=== PATIENT | female | born 1970 | race Hispanic/Latino ===

== ENCOUNTER 2020-06-16 09:13 | Observation (INO) | payer OTHER ==
[~2020-06-16] VITALS: Ht 157.5 cm; Wt 81.6 kg
[2020-06-16 09:42] LABS: APPEARANCE,URINE Clear (CLEAR); BILIRUBIN,URINE Negative (NEGATIVE); COLOR,URINE Yellow (YELLOW); GLUCOSE, URINE (UA) Negative (NEGATIVE); KETONES,URINE Negative (NEGATIVE); LEUKOCYTE ESTERASE ,URINE Negative (NEGATIVE); NITRATE,URINE Negative (NEGATIVE); OCCULT BLOOD,URINE Negative (NEGATIVE); PROTEIN,URINE Negative (NEGATIVE); UROBILINOGEN,URINE 0.2 mg/dL (0.2-1.0)
[2020-06-16 09:44] LABS: BASOPHILS % (AUTO) 0.3 % (0.0-5.0); EOSINOPHILS % (AUTO) 0.5 % (0.0-8.0); HEMATOCRIT 42.3 % (36-48); LYMPHOCYTES % (AUTO) 16.1 % (21.0-51.0); MEAN CORPUSCULAR HEMOGLOBIN 29.2 pg (27.0-33.0); MEAN CORPUSCULAR HGB CONC 31.9 g/dL (32.0-36.0); MEAN CORPUSCULAR VOLUME 91.6 fL (79-99); NEUTROPHILS % (AUTO) 76.6 % (40.0-77.0); PLATELET COUNT (AUTO) 309 K/uL (130-400); RED BLOOD CELL COUNT(AUTO) 4.62 MIL/uL (4.00-5.50); RED CELL DISTRIBUTION WIDTH 13.1 % (11.0-15.5); WHITE BLOOD COUNT (AUTO) 9.5 K/uL (4.8-10.8)
[2020-06-16 09:52] LABS: CREATININE 1.8 mg/dL (0.5-1.5); POTASSIUM 4.3 mmol/L (3.5-5.1)
[2020-06-16 09:57] LABS: ALBUMIN 4.3 g/dL (3.5-5.0); BILIRUBIN,TOTAL 0.4 mg/dL (0.2-1.0); TOTAL PROTEIN, SERUM 8.5 g/dL (6.0-8.3)
[2020-06-16 10:17] LABS: INR 0.99 (0.85-1.15); PARTIAL THROMBOPLASTIN TIME 24.7 SEC (26.3-35.5); PROTHROMBIN TIME 10.7 SEC (9.6-11.6)
[2020-06-16] MEDS ORDERED: DIAZEPAM 5 MG TABLET ONE (11:32)
[2020-06-16] MEDS ORDERED: ACETAMINOPHEN 325 MG TAB PO PRN ×2 (12:30)
[2020-06-16] MEDS ORDERED: ONDANSETRON HCL 4 MG/2 ML VIAL IV PRN (12:30)
[2020-06-16 13:15] LABS: HEMOGLOBIN A1C 6.2 % (4.0-6.0)
[2020-06-16 13:21] LABS: PHOSPHORUS 4.1 mg/dL (2.5-4.9); THYROID STIMULATING HORMONE 1.01 uIU/mL (0.36-3.74)
[2020-06-16] MEDS ORDERED: LORAZEPAM 2 MG/ML 1 ML VIAL ONE (15:40)
[2020-06-16 16:20] VITALS: BP 136/76
[2020-06-16 19:15] VITALS: BP 131/69
[2020-06-16] MEDS: SODIUM CHLORIDE 0.9% 1000ML 1,000 ML IV SCH (20:30)
[2020-06-16 23:53] VITALS: BP 113/72
[2020-06-17] MEDS: SODIUM CHLORIDE 0.9% 1000ML 1,000 ML IV SCH ×2 (00:02→06:48)
[2020-06-17 03:34] VITALS: BP 127/73
[2020-06-17 08:00] VITALS: BP 123/81
[2020-06-17] MEDS ORDERED: FAMOTIDINE 20MG TAB 20 MG TAB PO SCH (09:00)
[2020-06-17] MEDS ORDERED: ENOXAPARIN SODIUM 40 MG/0.4 ML SYRINGE SQ SCH (09:00)
[2020-06-17] MEDS ORDERED: MECL-160 PO (09:47)
[2020-06-17 11:00] VITALS: BP 129/69
--- NOTE | 2020-06-17 13:30 | NUR ---
THE PATIENT WAS INFORMED OF FOLLOW UP WITH PCP IN 3 TO 5 DAYS.
--- NOTE | 2020-06-17 13:30 | NUR ---
THE PATIENT WAS DISCHARGED FROM [facility] AT 1330 ON DECEME2019. THE PATIENT WAS EDUCATED ON NEW PRESCRIPTIONS, ELEVATED BLOOD PRESSURE, AND FALL PREVENTION. THE PATIENNT WAS INFORMED THAT ALL MEDICATIONS WERE SENT TO HER LOCAL PHARMACY AND SHE NEEDED TO SHOW UP THERE TO GET THEM. SHE WAS ALSO EDUCATED ON THE IMPORTANCE OF TAKING HIGH BLOOD PRESSURE MEDICATION TO HELP PRESERVE HEART FUNCTION IN THE FUTE, THE PATIENT STATED THAT SHE HASNT TAKING BLOOD PRESSURE MEDICATION IN YEARS. THE PATIENT UNDERSTOOD ALL TEACHING REGARDING INFORMATION THAT WAS READ TO HER AND HAD NO FURHTER QUESTIONS. THE PATIENTS IV WAS DISCONTINUED AND INTACT.
== END 2020-06-17 14:45 | disposition home or self-care (01) ==
LOC: EDH 09:13 → EDHIP 09:14 → 3BH 16:20
PROVIDERS: ADMIT Internal Medicine; ATTEND Internal Medicine
DX: R42 Dizziness and giddiness (principal); R11.2 Nausea with vomiting, unspecified; I10 Essential (primary) hypertension; R00.1 Bradycardia, unspecified; E66.01 Morbid (severe) obesity due to excess calories; F17.200 Nicotine dependence, unspecified, uncomplicated; Z90.710 Acquired absence of both cervix and uterus; Z91.14 Patient's other noncompliance with medication regimen; Z79.899 Other long term (current) drug therapy; Z68.32 Body mass index [BMI] 32.0-32.9, adult
CPT/HCPCS: 36415; 70450; 70551; 80053; 81003; 83036; 83735; 84100; 84145; 84443; 85025; 85610; 85730; 93005; 93880; 96360; 96361; 96372; 99285; G0378 ×26; J1650; J2060; J7030

== ENCOUNTER 2022-05-10 23:02 | Inpatient (IN) | payer OTHER ==
[~2022-05-10] VITALS: Ht 157.5 cm; Wt 84.4 kg
[~2022-05-10 23:02] MED LIST: MECL-160 PO
[2022-05-10 23:12] LABS: BASOPHILS % (AUTO) 0.5 % (0.0-5.0); HEMATOCRIT 39.7 % (36-48); LYMPHOCYTES % (AUTO) 23.3 % (21.0-51.0); MEAN CORPUSCULAR HEMOGLOBIN 29.5 pg (27.0-33.0); MEAN CORPUSCULAR HGB CONC 32.5 g/dL (32.0-36.0); MEAN CORPUSCULAR VOLUME 90.6 fL (79-99); MONOCYTES % (AUTO) 8.4 % (3.0-13.0); NEUTROPHILS % (AUTO) 64.5 % (40.0-77.0); PLATELET COUNT (AUTO) 343 K/uL (130-400); RED BLOOD CELL COUNT(AUTO) 4.38 MIL/uL (4.00-5.50); RED CELL DISTRIBUTION WIDTH 13.2 % (11.0-15.5); WHITE BLOOD COUNT (AUTO) 9.3 K/uL (4.8-10.8)
[2022-05-10 23:26] LABS: CREATININE 0.7 mg/dL (0.5-1.5); POTASSIUM 3.7 mmol/L (3.5-5.1)
[2022-05-10 23:32] LABS: APPEARANCE,URINE CLEAR (CLEAR); BILIRUBIN,URINE NEGATIVE (NEGATIVE); COLOR,URINE LIGHT-YELLOW (YELLOW); GLUCOSE, URINE (UA) NEGATIVE (NEGATIVE); KETONES,URINE NEGATIVE (NEGATIVE); LEUKOCYTE ESTERASE ,URINE 25 Leu/uL (NEGATIVE); NITRATE,URINE NEGATIVE (NEGATIVE); OCCULT BLOOD,URINE NEGATIVE (NEGATIVE); PROTEIN,URINE NEGATIVE (NEGATIVE); UROBILINOGEN,URINE 0.2 mg/dL (0.2-1.0)
[2022-05-10 23:34] LABS: ALBUMIN 3.7 g/dL (3.5-5.0); TOTAL PROTEIN, SERUM 7.7 g/dL (6.0-8.3)
[2022-05-10 23:39] LABS: BACTERIA,URINE RARE /HPF (None Seen); MUCUS,URINE RARE LPF (None Seen); SQUAMOUS EPITHELIAL CELL,UR RARE /HPF (0-2)
[2022-05-11] MEDS ORDERED: ONDANSETRON 4MG INJ IVP ONE
[2022-05-11] MEDS ORDERED: MAG/ALUM/SIMETH 30 ML UDCUP PO ONE (01:30)
[2022-05-11] MEDS ORDERED: LIDOCAINE HCL 2% VISCOUS 15 ML UDCUP PO ONE (01:30)
[2022-05-11] MEDS ORDERED: CYCLOBENZAPRINE HCL 10 MG TABLET ONE (04:27)
[2022-05-11] MEDS ORDERED: HYDROCODONE/ACETAMINOPHEN 10/325 MG TAB ONE (04:28)
[2022-05-11] MEDS ORDERED: ACETAMINOPHEN 325 MG TAB PO PRN (04:30)
[2022-05-11] MEDS ORDERED: ONDANSETRON 4MG INJ IV PRN (04:30)
[2022-05-11] MEDS ORDERED: HYDROCODONE/ACETAMINOPHEN 10/325 MG TAB PO ONE (04:30)
[2022-05-11] MEDS ORDERED: NITROGLYCERIN 0.4 MG SL TAB SL PRN (04:30)
[2022-05-11] MEDS ORDERED: MORPHINE 2 MG SYG IV PRN (04:30)
[2022-05-11] MEDS ORDERED: CYCLOBENZAPRINE HCL 10 MG TABLET PO ONE (04:30)
[2022-05-11] MEDS ORDERED: MORPHINE 4 MG SYG IV PRN (04:30)
[2022-05-11] MEDS ORDERED: DICYCLOMINE HCL 20 MG TAB PO SCH (04:30)
[2022-05-11] MEDS ORDERED: DICYCLOMINE HCL 20 MG TAB ONE (04:33)
[2022-05-11] MEDS: NITROGLYCERIN 1GM OINT 1 INCH/1GM TD SCH ×3 (04:43→20:30)
[2022-05-11] MEDS: CEFTRIAXONE 1G VIAL IV SCH (04:43)
[2022-05-11] MEDS ORDERED: CAPT25TA3 PO (04:58)
[2022-05-11] MEDS ORDERED: ATOR10TA69 PO (04:58)
[2022-05-11] MEDS ORDERED: ASPIRIN 81MG CHEW TAB PO ONE (05:00)
[2022-05-11 05:35] VITALS: BP 126/59
[2022-05-11 08:03] VITALS: BP 118/69
[2022-05-11] MEDS: FAMOTIDINE 20MG TAB PO SCH ×2 (08:20→21:01)
[2022-05-11] MEDS: ENOXAPARIN SODIUM 40 MG/0.4 ML SYRINGE SQ SCH (08:20)
[2022-05-11] MEDS: ASPIRIN 81MG CHEW TAB PO SCH (08:20)
[2022-05-11 11:15] VITALS: BP 107/65
[2022-05-11 16:07] VITALS: BP 110/68
[2022-05-11 21:43] VITALS: BP 124/61
[2022-05-12 00:15] VITALS: BP 121/68
[2022-05-12] MEDS: CEFTRIAXONE 1G VIAL IV SCH (04:06)
[2022-05-12 04:16] VITALS: BP 132/72
[2022-05-12 04:38] LABS: BASOPHILS % (AUTO) 0.5 % (0.0-5.0); EOSINOPHILS % (AUTO) 2.3 % (0.0-8.0); HEMATOCRIT 36.7 % (36-48); LYMPHOCYTES % (AUTO) 31.1 % (21.0-51.0); MEAN CORPUSCULAR HEMOGLOBIN 28.6 pg (27.0-33.0); MEAN CORPUSCULAR HGB CONC 31.1 g/dL (32.0-36.0); MEAN CORPUSCULAR VOLUME 92.2 fL (79-99); MONOCYTES % (AUTO) 8.4 % (3.0-13.0); NEUTROPHILS % (AUTO) 57.4 % (40.0-77.0); PLATELET COUNT (AUTO) 307 K/uL (130-400); RED BLOOD CELL COUNT(AUTO) 3.98 MIL/uL (4.00-5.50); RED CELL DISTRIBUTION WIDTH 13.3 % (11.0-15.5); WHITE BLOOD COUNT (AUTO) 6.2 K/uL (4.8-10.8)
[2022-05-12 05:20] LABS: CREATININE 0.7 mg/dL (0.5-1.5); MAGNESIUM 2.2 mg/dL (1.80-2.40); PHOSPHORUS 3.7 mg/dL (2.5-4.9); POTASSIUM 4.3 mmol/L (3.5-5.1); THYROID STIMULATING HORMONE 1.18 uIU/mL (0.36-3.74)
[2022-05-12 08:10] VITALS: BP 136/64
[2022-05-12] MEDS: ENOXAPARIN SODIUM 40 MG/0.4 ML SYRINGE SQ SCH (08:19)
[2022-05-12] MEDS: ASPIRIN 81MG CHEW TAB PO SCH (08:19)
[2022-05-12] MEDS ORDERED: PANTOPRAZOLE 40 MG TAB DR PO SCH (09:00)
[2022-05-12 10:58] VITALS: BP 120/66
[2022-05-12] MEDS ORDERED: PANT40TA PO (15:50)
[2022-05-12] MEDS ORDERED: ATOR10TA69 PO (15:50)
[2022-05-12 16:21] VITALS: BP 115/54
== END 2022-05-12 16:35 | disposition home or self-care (01) | DRG 313 ==
LOC: EDH 23:02 → EDHIP 23:03 → 4BH 05-11 05:05
PROVIDERS: ADMIT Internal Medicine; ATTEND Internal Medicine
DX: R07.89 Other chest pain (principal); N39.0 Urinary tract infection, site not specified; Z20.822 Contact with and (suspected) exposure to COVID-19; E11.9 Type 2 diabetes mellitus without complications; I10 Essential (primary) hypertension; E78.00 Pure hypercholesterolemia, unspecified; F17.200 Nicotine dependence, unspecified, uncomplicated; Z82.49 Family history of ischemic heart disease and other diseases of the circulatory system; Z83.3 Family history of diabetes mellitus; Z90.710 Acquired absence of both cervix and uterus; Z91.14 Patient's other noncompliance with medication regimen
CPT/HCPCS: 36415; 71045; 80048; 80053; 80061; 81001; 83036; 83735; 83874; 83880; 84100; 84443; 84484; 85025; 85378; 87635; 87804; 93005; G0378; J0696; J1650; J2405

== ENCOUNTER 2022-08-05 05:48 | Emergency (ER) | payer OTHER ==
[~2022-08-05] VITALS: Ht 154.9 cm; Wt 84.8 kg
[~2022-08-05 05:48] MED LIST changes: +ATOR10TA69 PO; -MECL-160 PO; +PANT40TA PO
[2022-08-05 06:15] LABS: BASOPHILS % (AUTO) 0.3 % (0.0-5.0); EOSINOPHILS % (AUTO) 4.7 % (0.0-8.0); LYMPHOCYTES % (AUTO) 31.6 % (21.0-51.0); MEAN CORPUSCULAR HEMOGLOBIN 28.3 pg (27.0-33.0); MEAN CORPUSCULAR HGB CONC 31.8 g/dL (32.0-36.0); MEAN CORPUSCULAR VOLUME 89.3 fL (79-99); MONOCYTES % (AUTO) 7.3 % (3.0-13.0); NEUTROPHILS % (AUTO) 55.7 % (40.0-77.0); PLATELET COUNT (AUTO) 311 K/uL (130-400); RED BLOOD CELL COUNT(AUTO) 4.48 MIL/uL (4.00-5.50); RED CELL DISTRIBUTION WIDTH 13.3 % (11.0-15.5); WHITE BLOOD COUNT (AUTO) 7.6 K/uL (4.8-10.8)
[2022-08-05 06:30] LABS: ALBUMIN 3.8 g/dL (3.5-5.0); CREATININE 0.8 mg/dL (0.5-1.5); POTASSIUM 3.8 mmol/L (3.5-5.1); TOTAL PROTEIN, SERUM 7.6 g/dL (6.0-8.3)
[2022-08-05 06:47] LABS: INR 1.01 (0.85-1.15)
[2022-08-05 06:49] LABS: PARTIAL THROMBOPLASTIN TIME 29.2 SEC (26.3-35.5)
[2022-08-05] MEDS ORDERED: MAG/ALUM/SIMETH 30 ML UDCUP PO ONE (08:30)
[2022-08-05] MEDS ORDERED: LIDOCAINE HCL 2% VISCOUS 15 ML UDCUP PO ONE (08:30)
[2022-08-05] MEDS ORDERED: DICYCLOMINE HCL 10 MG/5 ML ML PO ONE (08:30)
[2022-08-05 09:27] LABS: APPEARANCE,URINE CLEAR (CLEAR); BILIRUBIN,URINE NEGATIVE (NEGATIVE); COLOR,URINE LIGHT-YELLOW (YELLOW); GLUCOSE, URINE (UA) NEGATIVE (NEGATIVE); KETONES,URINE NEGATIVE (NEGATIVE); LEUKOCYTE ESTERASE ,URINE NEGATIVE Leu/uL (NEGATIVE); NITRATE,URINE NEGATIVE (NEGATIVE); OCCULT BLOOD,URINE NEGATIVE (NEGATIVE); PROTEIN,URINE NEGATIVE (NEGATIVE); UROBILINOGEN,URINE 0.2 mg/dL (0.2-1.0)
[2022-08-05 10:35] VITALS: BP 135/74
== END 2022-08-05 10:36 | disposition home or self-care (01) ==
LOC: EDH 05:48
DX: K20.90 Esophagitis, unspecified without bleeding (principal); I10 Essential (primary) hypertension; E78.00 Pure hypercholesterolemia, unspecified; Z79.899 Other long term (current) drug therapy
CPT/HCPCS: 36415; 71045; 80053; 81003; 83690; 83880; 84484; 85025; 85610; 85730; 93005

== ENCOUNTER 2023-10-02 18:27 | Emergency (ER) | payer BC ==
[~2023-10-02] VITALS: Ht 154.9 cm; Wt 87.5 kg
[2023-10-02 20:11] LABS: APPEARANCE,URINE CLEAR (CLEAR); BILIRUBIN,URINE NEGATIVE (NEGATIVE); COLOR,URINE COLORLESS (YELLOW); GLUCOSE, URINE (UA) NEGATIVE (NEGATIVE); KETONES,URINE NEGATIVE (NEGATIVE); LEUKOCYTE ESTERASE ,URINE 75 Leu/uL (NEGATIVE); NITRATE,URINE NEGATIVE (NEGATIVE); OCCULT BLOOD,URINE NEGATIVE (NEGATIVE); PROTEIN,URINE NEGATIVE (NEGATIVE); UROBILINOGEN,URINE 0.2 mg/dL (0.2-1.0)
[2023-10-02 20:18] LABS: ADD UA MICROSCOPIC YES
[2023-10-02 20:19] LABS: BACTERIA,URINE RARE /HPF (None Seen); MUCUS,URINE RARE LPF (None Seen); SQUAMOUS EPITHELIAL CELL,UR RARE /HPF (0-2)
[2023-10-02 20:21] LABS: BASOPHILS # (AUTO) 0.03 K/uL (0.00-0.20); BASOPHILS % (AUTO) 0.3 % (0.0-5.0); EOSINOPHILS # (AUTO) 0.03 K/uL (0.00-0.70); EOSINOPHILS % (AUTO) 0.3 % (0.0-8.0); HEMATOCRIT 37.9 % (36-48); IMMATURE GRANULOCYTE ABSOLUTE 0.04 K/uL (0-1); LYMPHOCYTES # (AUTO) 1.9 K/uL (1.0-4.8); LYMPHOCYTES % (AUTO) 17.7 % (21.0-51.0); MEAN CORPUSCULAR HEMOGLOBIN 29.3 pg (27.0-33.0); MEAN CORPUSCULAR HGB CONC 33.8 g/dL (32.0-36.0); MEAN CORPUSCULAR VOLUME 86.7 fL (79-99); MONOCYTES # (AUTO) 0.6 K/uL (0.1-1.0); MONOCYTES % (AUTO) 5.5 % (3.0-13.0); NEUTROPHILS # (AUTO) 7.9 K/uL (1.8-7.7); NEUTROPHILS % (AUTO) 75.8 % (40.0-77.0); PLATELET COUNT (AUTO) 345 K/uL (130-400); RED BLOOD CELL COUNT(AUTO) 4.37 MIL/uL (4.00-5.50); RED CELL DISTRIBUTION WIDTH 13.1 % (11.0-15.5); WHITE BLOOD COUNT (AUTO) 10.5 K/uL (4.8-10.8)
[2023-10-02] MEDS: 0.9%NACL 1000ML 1,000 ML IV ONE (20:21)
[2023-10-02] MEDS: ONDANSETRON 4MG INJ IVP ONE (20:21)
[2023-10-02] MEDS: MORPHINE 4 MG SYG IVP ONE (20:21)
[2023-10-02 20:31] LABS: CREATININE 0.6 mg/dL (0.5-1.0); POTASSIUM 3.9 mmol/L (3.5-5.1)
[2023-10-02 20:37] LABS: BILIRUBIN,TOTAL 0.3 mg/dL (0.2-1.0); TOTAL PROTEIN, SERUM 7.9 g/dL (6.0-8.3)
[2023-10-02] MEDS: CEFTRIAXONE 1G VIAL IVPB ONE (22:02)
[2023-10-02] MEDS ORDERED: LOPE2TAB26 PO (22:12)
[2023-10-02] MEDS ORDERED: PANT40TA PO (22:12)
[2023-10-02 22:27] VITALS: BP 147/77; PULSE 80; RESP 18; O2SAT 99
== END 2023-10-02 22:28 | disposition home or self-care (01) ==
LOC: EDH 18:27
DX: R19.7 Diarrhea, unspecified (principal); K57.30 Diverticulosis of large intestine without perforation or abscess without bleeding; E27.8 Other specified disorders of adrenal gland; K21.9 Gastro-esophageal reflux disease without esophagitis; Z79.899 Other long term (current) drug therapy; Z90.710 Acquired absence of both cervix and uterus
CPT/HCPCS: 99284; 74176; 96374; 96375; 82270; 83735; 80053; 83690; 85025; 87040 ×2; 87088; 83605; 81001; 36415; J7030; J0696; J2405; J2270

== ENCOUNTER 2024-05-27 19:01 | Observation (INO) | payer BC ==
[~2024-05-27] VITALS: Ht 157.5 cm; Wt 86.6 kg
[~2024-05-27 19:01] MED LIST changes: +LOPE2TAB26 PO
[2024-05-27 20:02] LABS: BASOPHILS # (AUTO) 0.03 K/uL (0.00-0.20); BASOPHILS % (AUTO) 0.4 % (0.0-5.0); EOSINOPHILS # (AUTO) 0.09 K/uL (0.00-0.70); EOSINOPHILS % (AUTO) 1.3 % (0.0-8.0); HEMATOCRIT 38.3 % (36-48); IMMATURE GRANULOCYTE ABSOLUTE 0.02 K/uL (0-1); MEAN CORPUSCULAR HEMOGLOBIN 29.5 pg (27.0-33.0); MEAN CORPUSCULAR HGB CONC 32.1 g/dL (32.0-36.0); MEAN CORPUSCULAR VOLUME 91.8 fL (79-99); MONOCYTES # (AUTO) 0.5 K/uL (0.1-1.0); MONOCYTES % (AUTO) 7.2 % (3.0-13.0); NEUTROPHILS # (AUTO) 4.4 K/uL (1.8-7.7); NEUTROPHILS % (AUTO) 61.8 % (40.0-77.0); PLATELET COUNT (AUTO) 301 K/uL (130-400); RED BLOOD CELL COUNT(AUTO) 4.17 MIL/uL (4.00-5.50); RED CELL DISTRIBUTION WIDTH 12.9 % (11.0-15.5)
[2024-05-27 20:11] LABS: CREATININE 0.7 mg/dL (0.5-1.0); POTASSIUM 3.8 mmol/L (3.5-5.1)
[2024-05-27 20:29] LABS: B-TYPE NATRIURETIC PEPTIDE 5 pg/mL (0-100)
--- NOTE | 2024-05-27 20:30 | NUR ---
PT BROUGHT INTO [facility] D AT THIS TIME.
--- NOTE | 2024-05-27 20:39 | ERN ---
ED Note History of Present Illness Stated Complaint: CHEST PAIN SINCE SATURDAY Chief Complaint: Chest Pain Time Seen by MD: 19:13 Dictation: This is a 54-year-old obese female who presented to the emergency room with complaints of severe chest pain. 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 She was scared and called her daughter. She also took Pepcid with no improvement at all. She gave history of 1 episode of emesis. For breakfast she ate scrambled egg and does ortiz. And lunch she ate a hamburger patties at 2 p.m. her pain started around 3:00 p.m.. She has not had this kind of severe pain in the past. Temperature 97.5 pulse 69 respirations 20 blood pressure 154/87 with a pulse oximetry of 98% on room air Her chronic medical problems include esophagitis, H pylori infection, hyper tension high cholesterol and morbid obesity Allergies: Coded Allergies: No Known Allergies (Verified Allergy, Unknown, 06/16/20) Home Meds Active Scripts Pantoprazole Sodium (Protonix) 40 Mg Tablet.dr, 40 MG PO DAILY for 30 Days, #30 TAB Prov:KATIA BENJAMIN 10/02/23 Loperamide HCl (Loperamide) 2 Mg Tablet, 2 MG PO DAILY for 7 Days, #30 TAB Take 2 now then 1 after every loose stool. Once you have a solid stool discontinue use. Prov:KATIA BENJAMIN 10/02/23 Pantoprazole Sodium (Protonix) 40 Mg Tablet.dr, 40 MG PO BID for GERD for 90 Days, #180 TAB 1 Refill Prov:YONY HOSKINS Jr., MD 05/12/22 Atorvastatin Calcium (Atorvastatin Calcium) 10 Mg Tablet, 10 MG PO DAILY for 90 Days, #90 TAB Prov:YONY HOSKINS Jr., MD 05/12/22 Past Medical History Past Medical History: High Cholesterol, Hypertension Surgical History: Hysterectomy Family History: DM, HTN Social History: Negative, Lives with family History: Not Applicable RN Note Reviewed/Agreed w/PFSH: Yes Review of System Dictation Constitutional: Negative for fever,chills, and weight loss Eyes: Negative for injury, pain,redness, and discharge ENT: Negative for injury,pain or swelling Cardiovascular: Positive for chest pain, denied palpitations, and edema Respiratory: Negative for shortness of breath, cough, and wheezing, Abdomen/GI: Negative for abdominal pain, nausea, vomiting, diarrhea, and constipation Back: Negative for injury and pain : Negative for injury, bleeding and discharge MS/Extremity: Negative for injury and deformity Skin: Negative for rash, and discoloration Neuro: Negative for headache, weakness, numbness, tingling, and seizure Psych: Negative for suicide ideation, homicidal ideation, and hallucinations Initial Vital Sign VS Vital Signs Date Time Temp Pulse Resp B/P (MAP) Pulse Ox O2 Delivery O2 Flow Rate FiO2 05/27/24 19:01 97.5 69 20 154/87 98 Room Air 0 05/27/24 21:23 21 Physical Exam Dictation General: awake, alert, NAD morbidly obese female Head/Face: Normocephalic, atraumatic Eyes: PERRL, EOMI, vision at baseline ENT: oral cavity clear, TMs clear, no signs of infection Neck: Trachea midline, supple, no nuchal rigidity Cardiovascular: RRR, normal S1/S2, No MRGs, no JVD, chest wall is nontender Respiratory: CTAB, no respiratory distress, No rales or wheezes Abdomen: Soft, non-tender, non-distended, normal bowel sounds, no guarding or rebound. Skin: Warm, dry, normal turgor, no rash MS/Extremity: Pulses equal, no cyanosis, neurovascular intact, FROM Neuro: COAx4, GCS 15, strength 5/5, CN 2-12 intact, normal cerebellar exam, normal gait, Psych: Normal behavior, mood, and affect normal Extremities-trace edema without any palpable cords, Homans sign is negative Results (Laboratory/Radiology) Laboratory/Radiology Laboratory Tests Test 05/27/24 19:55 05/27/24 20:15 05/27/24 21:33 White Blood Count 7.0 K/uL (4.8-10.8) Red Blood Count 4.17 MIL/uL (4.00-5.50) Hemoglobin 12.3 g/dL (12.0-16.0) Hematocrit 38.3 % (36-48) Mean Corpuscular Volume 91.8 fL (79-99) Mean Corpuscular Hemoglobin 29.5 pg (27.0-33.0) Mean Corpuscular Hemoglobin Concent 32.1 g/dL (32.0-36.0) Red Cell Distribution Width 12.9 % (11.0-15.5) Platelet Count 301 K/uL (130-400) Mean Platelet Volume 11.0 fL (7.5-10.5) H Immature Granulocyte % (Auto) 0.3 % (0-1) Neutrophils (%) (Auto) 61.8 % (40.0-77.0) Lymphocytes (%) (Auto) 29.0 % (21.0-51.0) Monocytes (%) (Auto) 7.2 % (3.0-13.0) Eosinophils (%) (Auto) 1.3 % (0.0-8.0) Basophils (%) (Auto) 0.4 % (0.0-5.0) Neutrophils # (Auto) 4.4 K/uL (1.8-7.7) Lymphocytes # (Auto) 2.0 K/uL (1.0-4.8) Monocytes # (Auto) 0.5 K/uL (0.1-1.0) Eosinophils # (Auto) 0.09 K/uL (0.00-0.70) Basophils # (Auto) 0.03 K/uL (0.00-0.20) Absolute Immature Granulocyte (auto 0.02 K/uL (0-1) Nucleated Red Blood Cells 0.0 % (0.0-0.19) Sodium Level 143 mmol/L (136-145) Potassium Level 3.8 mmol/L (3.5-5.1) Chloride Level 106 mmol/L (101-111) Carbon Dioxide Level 26 mmol/L (21-32) Blood Urea Nitrogen 16 mg/dL (7-18) Creatinine 0.7 mg/dL (0.5-1.0) Glomerular Filtration Rate Calc 101 mL/min (>90) Random Glucose 110 mg/dL (70-105) H Total Calcium 9.1 mg/dL (8.5-10.1) Total Bilirubin 0.3 mg/dL (0.2-1.0) Direct Bilirubin 0.1 mg/dL (0.0-0.3) Aspartate Amino Transf (AST/SGOT) 13 U/L (10-37) Alanine Aminotransferase (ALT/SGPT) 22 U/L (12-78) Alkaline Phosphatase 109 U/L (50-136) Total Creatine Kinase 49 U/L (21-232) B-Type Natriuretic Peptide 5 pg/mL (0-100) Total Protein 7.6 g/dL (6.0-8.3) Albumin 4.0 g/dL (3.5-5.0) Troponin I < 0.05 ng/mL (0.00-0.05) Urine Color LIGHT-YELLOW (YELLOW) Urine Appearance CLEAR (CLEAR) Urine pH 5.0 (5.0-8.0) Urine Specific [place] 1.023 (1.001-1.031) Urine Protein NEGATIVE mg/dL (NEGATIVE) Urine Glucose (UA) NEGATIVE mg/dL (NEGATIVE) Urine Ketones NEGATIVE mg/dL (NEGATIVE) Urine Occult Blood NEGATIVE (NEGATIVE) Urine Nitrate NEGATIVE (NEGATIVE) Urine Bilirubin NEGATIVE mg/dL (NEGATIVE) Urine Urobilinogen 0.2 mg/dL (0.2-1.0) Urine Leukocyte Esterase NEGATIVE Ana M/uL Urine RBC 0-1 /HPF (0-1) Urine WBC 0-1 /HPF (0-1) Urine Bacteria None /HPF (None Seen) Labs Reviewed?: Yes ED Course ED Course Orders Procedure Category Date Status Time Vital Signs Per CPOE 05/27/24 Transmitted Routine 19:44 B-Type Natriuretic LAB 05/27/24 Complete Peptide 19:44 Chest 1vw RAD 05/27/24 Taken 19:44 12 Lead Ekg Tracing- EKG 05/27/24 Logged Technical 19:44 Oxygen By Nc/Pulse Ox CPOE 05/27/24 Transmitted 19:44 Maintain Iv CPOE 05/27/24 Transmitted 19:44 Iv Insertion CPOE 05/27/24 Transmitted 19:44 Cardiac Monitoring CPOE 05/27/24 Transmitted 19:44 Pulse Oximetry With CPOE 05/27/24 Transmitted Vs And Prn 19:44 Cbc With Differential LAB 05/27/24 Complete 19:44 Activity: Br W/Brp CPOE 05/27/24 Transmitted With Assist 19:44 Creatine Kinase, Total LAB 05/27/24 Complete 19:44 Urinalysis Profile LAB 05/27/24 Complete 19:44 Troponin Poc Order LAB 05/27/24 Complete Only 19:44 Bedside Troponin-I LAB.ER 05/27/24 In Process (Poc) 19:44 Basic Metabolic Panel LAB 05/27/24 Complete 19:44 Morphine 2mg Syg PHA 05/27/24 Complete (Morphine 2mg Syg) 20:30 Ondansetron 4mg Inj PHA 05/27/24 Complete (Zofran 4mg Inj) 20:30 Lidocaine Hcl 2% PHA 05/27/24 In Process Viscous (Lidocaine Hcl 20:30 Mag/Alum/Simeth 30ml PHA 05/27/24 In Process (Maalox Plus 30ml) 20:30 Pantoprazole 40mg Inj PHA 05/27/24 Complete (Protonix 40mg Inj 20:30 Dicyclomine Hcl PHA 05/27/24 Complete (Bentyl 10mg/5ml 20:30 Nitroglycerin 0.4mg PHA 05/27/24 In Process Sl Tab (Nitrostat) 21:00 Hepatic Function Panel LAB 05/27/24 Complete 20:40 Edm Admit Bridge Order ADM 05/27/24 Verified 21:57 Admit Orders ADM 05/27/24 Verified 21:57 Current Medications Medications (Trade) Dose Ordered Sig/Alfredo Route PRN Reason Start Time Stop Time Status Last Admin Dose Admin Al Hydroxide/Mg Hydroxide (MAALox PLUS 30ML) 30 ml ONCE ONCE PO 05/27/24 20:30 05/27/24 20:39 DC 05/27/24 21:12 Dicyclomine HCl (Bentyl 10mg/5ml Syrup) 10 mg ONCE ONCE PO 05/27/24 20:30 05/27/24 20:39 DC 05/27/24 21:13 Lidocaine HCl (Lidocaine HCl 2% Viscous) 10 ml ONCE ONCE PO 05/27/24 20:30 05/27/24 20:39 DC 05/27/24 21:12 Morphine Sulfate (morPHINE 2MG SYG) 2 mg ONCE ONCE IVP 05/27/24 20:30 05/27/24 20:39 DC 05/27/24 21:13 Nitroglycerin (Nitrostat) 0.4 mg AD PRN SL CHEST PAIN 05/27/24 21:00 06/26/24 20:59 Ondansetron HCl (zoFRAN 4MG INJ) 4 mg ONCE ONCE IVP 05/27/24 20:30 05/27/24 20:39 DC 05/27/24 21:12 Pantoprazole Sodium (PROTonix 40MG INJ) 40 mg ONCE ONCE IVP 05/27/24 20:30 05/27/24 20:39 DC 05/27/24 21:12 Vital Signs Date Time Temp Pulse Resp B/P (MAP) Pulse Ox O2 Delivery O2 Flow Rate FiO2 05/27/24 21:23 97.9 64 18 164/66 98 Room Air* 0 21 05/27/24 19:01 97.5 69 20 154/87 98 Room Air 0 We will perform diagnostic labs, advanced imaging and administer medications according to the patient's complaint. Once the results are available, will review and personally interpreted the labs to rule out any acute life- threatening emergency the trach require immediate intervention and treatment. I will then re-evaluate the patient after treatment and diagnostic exams have return to determine whether the patient requires any further testing, can safely be discharged home or need further admission to hospital for additional treatment and evaluation. 8:20 p.m. Labs reviewed CBC BNP 7 are within normal limits. Troponins and BNP are pending 9:49 p.m. troponins negative. Patient's pain improved and recurred. May simply be secondary to hiatal hernia however patient has multiple risk factors for coronary artery disease and I recommended admission and further cardiac testing including echo to assess diastolic dysfunction and stress testing. She felt reassured and wanted to pursue aggressive workup for cardiac disease 10:00 p.m. patient accepted by the hospitalist nurse practitioner nicole for admission and further management HEART Score Response (Comments) Value History: Moderate suspicion (+1) 1 EKG: Normal 0 Age: 45-65yrs (+1) 1 Risk Factors: 3+ risk factors (+2) 2 Initial Troponin: Normal limit (0) 0 HEART Score Risk: Mod Risk for MACE (4-6) Total 4 Medical Decision Making MDM MDM: Differential diagnosis: ACS, esophageal spasm, esophagitis, hiatal hernia, gastritis Rationale: Tests considered and ordered secondary to shared decision making include: labs, ECG and radiology Previous outside records reviewed: Old ER visits. Risk of complication and/or morbidity or mortality of patient management: None Medications-Per medication reconciliation Need for hospitalization: Patient does meet criteria for hospitalization. Need for emergency major/minor surgery: No There are no social concerns with this patient. Prescription drug management Prescriptions will include symptomatic care Patient's prior external medical records from other ER visits were reviewed by me as indicated. Prior testing and results from previous visits were reviewed. Prior tests were taken into account with medical decision making and resource utilization, independent historian/historians were used to obtain complete medical history. I independently interpreted the test that were performed, results were reviewed by me and considered findings on radiology if ordered. Medical management and examination interpretation discussions were had by me with other qualified healthcare professionals as indicated for the patient's care. Problem List Problem List: (1) Chest pain (2) Esophagitis (3) Diverticulosis of colon without diverticulitis (4) ACS (acute coronary syndrome) DX & DISP Disposition: Inpatient Decision to Admit Time: 20:39 Departure Impression: Primary Impression: ACS (acute coronary syndrome) Additional Impressions: Chest pain, Esophagitis, Diverticulosis of colon wi thout diverticulitis Condition: Stable Additional Instructions: Patient was informed of all the diagnostic labs and procedures conducted in the emergency room today and demonstrated understanding of the results. I personally reviewed and interpreted all the diagnostic exams performed in the ER today. The patient will be admitted to the hospital for further treatment and evaluation. Disposition-admit to facility Condition-stable/guarded Course-uncertain at this time Pain status-decreased Assessment-exam unchanged Admission Certification- I certify that the patients status is appropriate and is based on my best clinical judgment and the patient's condition as documented in the medical records Referrals: SELF,REFERRAL (PCP) ALYSSIA GODDARD MD May 27, 2024 20:39
[2024-05-27] MEDS ORDERED: NITROGLYCERIN 0.4 MG SL TAB SL PRN ×2 (21:00→22:30)
[2024-05-27 21:08] LABS: BILIRUBIN,DIRECT 0.1 mg/dL (0.0-0.3); BILIRUBIN,TOTAL 0.3 mg/dL (0.2-1.0); TOTAL PROTEIN, SERUM 7.6 g/dL (6.0-8.3)
[2024-05-27] MEDS: LIDOCAINE HCL 2% VISCOUS 15 ML UDCUP PO ONE (21:12)
[2024-05-27] MEDS: MAG/ALUM/SIMETH 30 ML UDCUP PO ONE (21:12)
[2024-05-27] MEDS: ondanSETRON 4MG INJ IVP ONE (21:12)
[2024-05-27] MEDS: PANTOPrazole 40 MG/VIAL IVP ONE (21:12)
[2024-05-27] MEDS: morPHINE 2 MG SYG IVP ONE (21:13)
[2024-05-27] MEDS: DICYCLOMINE HCL 10 MG/5 ML ML PO ONE (21:13)
[2024-05-27 21:44] LABS: APPEARANCE,URINE CLEAR (CLEAR); BILIRUBIN,URINE NEGATIVE (NEGATIVE); COLOR,URINE LIGHT-YELLOW (YELLOW); GLUCOSE, URINE (UA) NEGATIVE (NEGATIVE); KETONES,URINE NEGATIVE (NEGATIVE); LEUKOCYTE ESTERASE ,URINE NEGATIVE Leu/uL (NEGATIVE); NITRATE,URINE NEGATIVE (NEGATIVE); OCCULT BLOOD,URINE NEGATIVE (NEGATIVE); PROTEIN,URINE NEGATIVE (NEGATIVE); UROBILINOGEN,URINE 0.2 mg/dL (0.2-1.0)
[2024-05-27 21:45] LABS: ADD UA MICROSCOPIC YES
[2024-05-27 21:46] LABS: MUCUS,URINE RARE LPF (None Seen); RBC,URINE 0-1 /HPF (0-1); WBC,URINE 0-1 /HPF (0-1)
[2024-05-27] MEDS ORDERED: FAMO40TA7 PO (22:10)
[2024-05-27] MEDS ORDERED: TRAZ-187 PO (22:10)
[2024-05-27] MEDS ORDERED: VITAD50000 PO (22:10)
[2024-05-27] MEDS ORDERED: FLUO40CA49 PO (22:10)
[2024-05-27] MEDS ORDERED: CAPT25TA3 PO (22:10)
[2024-05-27] MEDS ORDERED: ATOR10 PO (22:10)
--- NOTE | 2024-05-27 22:19 | HP ---
[facility] HISTORY AND PHYSICAL Date of Service: May 27, 2024 Time of Service: 22:19 PCP: Sha Mcghee HISTORY OF PRESENT ILLNESS: This is a 54-year-old female with past medical history of esophagitis, H pylori, hypertension, left knee bursitis, hyperlipidemia and noncompliance with medication who presents to the ED for complaints of severe midsternal chest pain associated with nausea ,nonbloody vomiting x1 and shortness of breath.Patient states she was having persistent chest pain since Saturday 4 days ago and initially pain is tolerable and yesterday she noticed that pain has been increasing in intensity and today becomes worse around 3 pm in the afternoon 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 Examined patient in the ER awake alert and coherent continue to complain of chest pain 4/10 pain level. Patient denies fever, chills, cough, palpitation, abdominal pain and diarrhea. Latest Vital signs: Temperature 98.4, heart rate 64, blood pressure 115/67, saturation 96% on room air. Labs: CBC unremarkable chemistry is unremarkable troponin less than 0.05 and troponin high since 4. BNP 5. Urinalysis is normal. ECG result revealed sinus rhythm heart rate 70 low voltage precordial leads. While in the ER patient received nitroglycerin sublingual, Bentyl 10 mg p.o., Protonix 40 mg IV, Maalox 30 mL p.o., lidocaine 10 mL p.o., Zofran 4 mg IV and morphine 2 mg IV. We will admit patient for further medical management. REVIEW OF SYSTEMS CONSTITUTIONAL: Denies fevers, chills, or night sweats. No unintentional weight loss reported. NEUROLOGICAL: Denies headache, amaurosis fugax, motor weakness, sensory deficit, vertigo/spinning sensation, gait abnormalities, or tremors. ENT: No hearing loss, otalgia, otorrhea, rhinitis, rhinorrhea, hoarseness, or sore throat. CARDIOVASCULAR: Complain of chest pain Denies orthopnea, paroxysmal nocturnal dyspnea, palpitations, life-threatening arrhythmias, claudication. PULMONARY: Complain of shortness of breaths Denies cough, phlegm/sputum, hemoptysis, pleuritic chest pain. SLEEP: Denies morning headaches, daytime somnolence or napping. Denies difficulty falling asleep, staying asleep, waking from sleep. Denies knowledge of snoring. GASTROINTESTINAL: Complained of nausea vomiting x1 Denies any type of dysphagia to either liquids or solids. Denies pyrosis, early satiety, abdominal pain, diarrhea, constipation, or changes in stool consistency or caliber. Denies coffee-ground emesis, hematemesis, hematochezia, or melanotic stools. GENITOURINARY: Denies frequency, urgency, nocturia, hematuria or incontinence (Storage/Irritative symptoms.) Low urinary stream, straining to void, urinary intermittency or hesitancy, splitting of the voiding stream, terminal dribbling. ENDOCRINOLOGIC: Denies polyuria, polydipsia, polyphagia or heat/cold intolerances. HEMATOLOGIC: Denies thrombophilia/previous clots, or coagulopathy/bleeding disorders. ONCOLOGIC: Denies personal history of malignancy. DERMATOLOGIC: Denies rashes or pruritus. PSYCHIATRIC: Denies any suicidal or homicidal ideation. Denies hallucinations. PAST MEDICAL HISTORY: [ esophagitis, H pylori, hypertension, left knee bursitis, hyperlipidemia and noncompliance with medication ] PAST SURGICAL HISTORY: [Hysterectomy ] PAST SOCIAL HISTORY: [Patient lives with daughter. Patient needs to smoking one pack of cigarettes per week and drinks six beers per week. Patient denies recreational drug use ] FAMILY HISTORY: [Hypertension, throat cancer, hyperlipidemia and diabetes ] Coded Allergies: No Known Allergies (Verified Allergy, Unknown, 06/16/20) PHYSICAL EXAM GENERAL APPEARANCE: The patient is awake, alert, and oriented, in no acute cardiopulmonary distress. NEUROLOGICAL: Cranial nerves II-XII grossly intact. Motor is 5/5 in bilateral upper and lower extremities proximal to distal. No sensory deficits. HEENT: Face is symmetric. Pupils are equal and reactive. Extraocular movements are intact. NECK: Supple. No JVD. No thyromegaly. No submental, submandibular, pre- /postauricular, occipital or supraclavicular lymphadenopathy. CHEST: Normal chest expansion. No Telemetry. LUNGS: Absence of any rales, rhonchi or any wheezing. CARDIOVASCULAR: Regular. S1 and S2 normal. No appreciable rubs, murmurs or gallops. ABDOMEN: Soft, nontender, and nondistended. There is no rebound, voluntary guarding, or rigidity. : Deferred. No Rice. EXTREMITIES: Non-edematous and not cyanotic. No clubbing. Good capillary refill. SKIN: No skin breakdown. Vital Sign (Last 24 Hours) 05/27/24 21:23 Temp 97.9 Pulse 64 Resp 18 B/P (MAP) 164/66 Pulse Ox 98 O2 Delivery Room Air* O2 Flow Rate 0 FiO2 21 LABS: Laboratory: Test 05/27/24 21:33 05/27/24 20:15 05/27/24 19:55 Range/Units Urine Color LIGHT-YELLOW YELLOW Urine Appearance CLEAR CLEAR Urine pH 5.0 5.0-8.0 Urine Specific [place] 1.023 1.001-1.031 Urine Protein NEGATIVE NEGATIVE mg/dL Urine Glucose (UA) NEGATIVE NEGATIVE mg/dL Urine Ketones NEGATIVE NEGATIVE mg/dL Urine Occult Blood NEGATIVE NEGATIVE Urine Nitrate NEGATIVE NEGATIVE Urine Bilirubin NEGATIVE NEGATIVE mg/dL Urine Urobilinogen 0.2 0.2-1.0 mg/dL Urine Leukocyte Esterase NEGATIVE NEGATIVE Ana M/uL Urine RBC 0-1 0-1 /HPF Urine WBC 0-1 0-1 /HPF Urine Bacteria None None Seen /HPF Troponin I < 0.05 0.00-0.05 ng/mL White Blood Count 7.0 4.8-10.8 K/uL Red Blood Count 4.17 4.00-5.50 MIL/uL Hemoglobin 12.3 12.0-16.0 g/dL Hematocrit 38.3 36-48 % Mean Corpuscular Volume 91.8 79-99 fL Mean Corpuscular Hemoglobin 29.5 27.0-33.0 pg Mean Corpuscular Hemoglobin Concent 32.1 32.0-36.0 g/dL Red Cell Distribution Width 12.9 11.0-15.5 % Platelet Count 301 130-400 K/uL Mean Platelet Volume 11.0 H 7.5-10.5 fL Immature Granulocyte % (Auto) 0.3 0-1 % Neutrophils (%) (Auto) 61.8 40.0-77.0 % Lymphocytes (%) (Auto) 29.0 21.0-51.0 % Monocytes (%) (Auto) 7.2 3.0-13.0 % Eosinophils (%) (Auto) 1.3 0.0-8.0 % Basophils (%) (Auto) 0.4 0.0-5.0 % Neutrophils # (Auto) 4.4 1.8-7.7 K/uL Lymphocytes # (Auto) 2.0 1.0-4.8 K/uL Monocytes # (Auto) 0.5 0.1-1.0 K/uL Eosinophils # (Auto) 0.09 0.00-0.70 K/uL Basophils # (Auto) 0.03 0.00-0.20 K/uL Absolute Immature Granulocyte (auto 0.02 0-1 K/uL Nucleated Red Blood Cells 0.0 0.0-0.19 % Sodium Level 143 136-145 mmol/L Potassium Level 3.8 3.5-5.1 mmol/L Chloride Level 106 101-111 mmol/L Carbon Dioxide Level 26 21-32 mmol/L Blood Urea Nitrogen 16 7-18 mg/dL Creatinine 0.7 0.5-1.0 mg/dL Glomerular Filtration Rate Calc 101 >90 mL/min Random Glucose 110 H 70-105 mg/dL Total Calcium 9.1 8.5-10.1 mg/dL Total Bilirubin 0.3 0.2-1.0 mg/dL Direct Bilirubin 0.1 0.0-0.3 mg/dL Aspartate Amino Transf (AST/SGOT) 13 10-37 U/L Alanine Aminotransferase (ALT/SGPT) 22 12-78 U/L Alkaline Phosphatase 109 50-136 U/L Total Creatine Kinase 49 21-232 U/L B-Type Natriuretic Peptide 5 0-100 pg/mL Total Protein 7.6 6.0-8.3 g/dL Albumin 4.0 3.5-5.0 g/dL Current Medications Medications (Trade) Dose Ordered Sig/Alfredo Route PRN Reason Start Time Stop Time Status Last Admin Dose Admin Nitroglycerin (Nitrostat) 0.4 mg AD PRN SL CHEST PAIN 05/27/24 21:00 06/26/24 20:59 DIAGNOSTICS / RADIOLOGY: [ ] ASSESSMENT: Chest pain rule out ACS POA Morbid obesity POA Hypertension POA Hyperlipidemia POA Active smoker POA Alcohol drinker POA History of noncompliance with BP medication POA History of esophagitis POA History of H pylori POA PLAN: We will admit patient in medical telemetry We will keep patient nothing by mouth We will start aspirin 81 mg p.o. and atorvastatin 40 mg p.o. We will start on Protonix 40 mg IV daily for GI prophylaxis We will start Lovenox 30 mg subQ daily for DVT prophylaxis We will replace electrolytes as needed per protocol We will start on insulin sliding scale AC & HS with hypoglycemia protocol We will add prn medication for fever,pain, nausea and vomiting Home meds reconciled We will trend troponin q.6 hours x3 We will seek Cardiology consultation We will obtain echocardiogram We will request labs in am We will counseled on smoking and alcohol drinking cessation Further orders to follow depending on above results Case discussed with attending physician and came up with above treatment and plan of care. ADVANCED CARE PLANNING 1. Which of the following were discussed? Hospice Care - No Therapeutic options - Yes Advance Directives - No Other discussions - 2. Discussed with who? Patient 3. Voluntary nature of this service was explained to the patient? Yes 4. Amount of time spent - __ 19 5. Reviewed by Physician? (if this service was performed by NPP) Yes Patient seen and examined by me. Agree with note by HAND ROUNDER SEE ADDITIONAL ORDERS PER CHART DISCUSSED WITH NURSING STAFF ARABELLA ARNOLD NET SORTER May 27, 2024 22:19
[2024-05-27] MEDS ORDERED: acetaMINOPHEN 325 MG TAB PO PRN ×2 (22:30)
[2024-05-27] MEDS ORDERED: hydrALAZine 20MG/ML VIAL IV PRN (22:30)
[2024-05-27] MEDS ORDERED: ondanSETRON 4MG INJ IV PRN (22:30)
--- NOTE | 2024-05-27 23:45 | NUR ---
SBAR GIVEN TO YONY SANCHEZ
--- NOTE | 2024-05-27 23:53 | NUR ---
PT CARE ASSUMED AT THIS TIME
[2024-05-28] MEDS ORDERED: Cholecalciferol (Vitamin D3) 50,000 UNITS PO SCH (01:30)
[2024-05-28] MEDS ORDERED: PoTASSium chl 10% ELIXIR 20MEQ 20 MEQ/15 ML UDCUP PO PRN (01:30)
[2024-05-28] MEDS ORDERED: ketOROlac 15MG/ML VIAL (15MG/ML) IV PRN (01:30)
[2024-05-28] MEDS ORDERED: DEXTROSE 50%-WATER 50 ML DISP.SYRIN IV PRN (01:30)
[2024-05-28] MEDS ORDERED: MAGNESIUM 2GM PREMIX 50ML 50 ML IV PRN (01:30)
[2024-05-28] MEDS ORDERED: PoTASSium chloRIDE 20MEQ ER 20 MEQ ERTAB PO PRN (01:30)
[2024-05-28] MEDS ORDERED: PoTASSium chloRIDE 20MEQ/100ML 100 ML IV PRN (01:30)
[2024-05-28] MEDS ORDERED: GLUCAGON 1MG KIT 1 MG ML IM PRN (01:30)
--- NOTE | 2024-05-28 07:00 | NUR ---
HAND OFF REPORT GIVEN TO HAROON SANCHEZ AT THIS TIME
[2024-05-28 07:01] LABS: BASOPHILS # (AUTO) 0.01 K/uL (0.00-0.20); BASOPHILS % (AUTO) 0.2 % (0.0-5.0); EOSINOPHILS # (AUTO) 0.09 K/uL (0.00-0.70); EOSINOPHILS % (AUTO) 1.4 % (0.0-8.0); HEMATOCRIT 35.3 % (36-48); IMMATURE GRANULOCYTE ABSOLUTE 0.01 K/uL (0-1); LYMPHOCYTES # (AUTO) 1.5 K/uL (1.0-4.8); LYMPHOCYTES % (AUTO) 23.6 % (21.0-51.0); MEAN CORPUSCULAR HGB CONC 32.3 g/dL (32.0-36.0); MEAN CORPUSCULAR VOLUME 89.8 fL (79-99); MONOCYTES # (AUTO) 0.5 K/uL (0.1-1.0); NEUTROPHILS # (AUTO) 4.2 K/uL (1.8-7.7); NEUTROPHILS % (AUTO) 66.6 % (40.0-77.0); PLATELET COUNT (AUTO) 269 K/uL (130-400); RED BLOOD CELL COUNT(AUTO) 3.93 MIL/uL (4.00-5.50); RED CELL DISTRIBUTION WIDTH 12.9 % (11.0-15.5); WHITE BLOOD COUNT (AUTO) 6.3 K/uL (4.8-10.8)
[2024-05-28 07:04] LABS: HEMOGLOBIN A1C 5.9 % (4.0-6.0)
[2024-05-28 07:24] LABS: ALBUMIN 3.6 g/dL (3.5-5.0); BILIRUBIN,TOTAL 0.5 mg/dL (0.2-1.0); CREATININE 0.7 mg/dL (0.5-1.0); MAGNESIUM 1.8 mg/dL (1.80-2.40); POTASSIUM 4.1 mmol/L (3.5-5.1); THYROID STIMULATING HORMONE 1.73 uIU/mL (0.36-3.74); TOTAL PROTEIN, SERUM 6.9 g/dL (6.0-8.3)
[2024-05-28 07:30] VITALS: O2SAT 95
[2024-05-28] MEDS: INSULIN humuLIN R 100 UNIT/ML 3ML SQ SCH (07:30)
[2024-05-28 08:04] VITALS: BP 120/66; PULSE 61; RESP 19
[2024-05-28 08:27] VITALS: TEMP 98.6
--- NOTE | 2024-05-28 08:41 | HMCIMG ---
CHEST 1VW REASON: CHEST PAIN COMPARISON: 08/05/2022 FINDINGS: Single view of the chest was obtained. Lungs are clear. Heart size is normal. There is no pulmonary vascular congestion. Mediastinum and bony thorax appear unremarkable. IMPRESSION: 1. Normal single view chest x-ray.
--- NOTE | 2024-05-28 08:52 | EKG ---
[facility] Test Date: 2024-05-27 Test Time: 18:58:27 Pat Name: GLO LYNNE Department: EDHIP [place] [facility] [id number] Room: ED 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
[2024-05-28] MEDS: PANTOPrazole 40 MG/VIAL IVP SCH (09:04)
[2024-05-28] MEDS: LISINOPRIL 5 MG TABLET PO SCH (09:05)
[2024-05-28] MEDS: trAZOdone HCL 100 MG TABLET PO SCH (09:05)
[2024-05-28] MEDS: ASPIRIN 81 MG EC TAB PO SCH (09:05)
[2024-05-28] MEDS: ENOXAPARIN SODIUM 30 MG/0.3 ML SQ SCH (09:05)
[2024-05-28] MEDS: FLUoxetine HCL 20 MG CAPSULE PO SCH (09:05)
[2024-05-28] MEDS ORDERED: AEC81 PO (10:47)
[2024-05-28] MEDS ORDERED: OMEP20CA12 PO (10:47)
--- NOTE | 2024-05-28 10:50 | DS ---
Discharge Summary Hospital Course Summary: DATE OF ADMISSION:[05/27/2024] DATE OF DISCHARGE:[05/28/2024] DISPOSITION:[Home] CONDITION:[Medically stable] CONSULTANTS:[Catering Driver] FOLLOW UP APPOINTMENTS:[PCP 2 to 3 days. Catering Driver within one week] PROCEDURES:[None] IMAGING: report attached to summary MICROBIOLOGY: report attached to summary ACTIVITY:[Independent] HOME MEDICATIONS: see med recc NEW MEDICATIONS:[See med rec] EMERGENCY INSTRUCTIONS: The patient was instructed to present to the nearest Emergency departmentr or call 911 once their symptoms will return or worsen Head Of Art(s): This is a 54-year-old female with past medical history of esophagitis, H pylori, hypertension, left knee bursitis, hyperlipidemia and noncompliance with medication who presents to the ED for complaints of severe midsternal chest pain associated with nausea ,nonbloody vomiting x1 and shortness of breath.Patient states she was having persistent chest pain since Saturday 4 days ago and initially pain is tolerable and yesterday she noticed that pain has been increasing in intensity and today becomes worse around 3 pm in the afternoon when she tried to cook pickled meat her grandchildren she noticed her chest pain becoming worse and so she decided to come to the ED for evaluation today.Patient states she has similar problem in the past and was admitted but was told she esophagitis .Patient also states she has an endoscopy done and found some polyps and she has H-pylori as well.Patient states she had scrambled egg and ortiz for breakfast and lunch she had hamburger patties and she also took pepcid however the pain remains severe. Examined patient in the ER awake alert and coherent continue to complain of chest pain 4/10 pain level. Patient denies fever, chills, cough, palpitation, abdominal pain and diarrhea. Latest Vital signs: Temperature 98.4, heart rate 64, blood pressure 115/67, saturation 96% on room air. Labs: CBC unremarkable chemistry is unremarkable troponin less than 0.05 and troponin high since 4. BNP 5. Urinalysis is normal. ECG result revealed sinus rhythm heart rate 70 low voltage precordial leads. While in the ER patient received nitroglycerin sublingual, Bentyl 10 mg p.o., Protonix 40 mg IV, Maalox 30 mL p.o., lidocaine 10 mL p.o., Zofran 4 mg IV and morphine 2 mg IV. We will admit patient for further medical management. Throughout the hospitalization patient was seen by wood finisher apprentice 2D echo was performed and was normal. Catering Driver cleared the patient and asked to follow up outpatient for stress test within one week. Patient to follow up with PCP in 2 to 3 days. Patient denies any shortness of breath, chest pain, nausea, vomiting or any other discomfort at this moment. Procedure(s): REVIEW OF SYSTEMS CONSTITUTIONAL: Denies fevers, chills, or night sweats. No unintentional weight loss reported. NEUROLOGICAL: Denies headache, amaurosis fugax, motor weakness, sensory deficit, vertigo/spinning sensation, gait abnormalities, or tremors. ENT: No hearing loss, otalgia, otorrhea, rhinitis, rhinorrhea, hoarseness, or sore throat. CARDIOVASCULAR: Denies of chest pain Denies orthopnea, paroxysmal nocturnal dyspnea, palpitations, life-threatening arrhythmias, claudication. PULMONARY: Denies of shortness of breaths Denies cough, phlegm/sputum, hemoptysis, pleuritic chest pain. SLEEP: Denies morning headaches, daytime somnolence or napping. Denies difficulty falling asleep, staying asleep, waking from sleep. Denies knowledge of snoring. GASTROINTESTINAL: Denies of nausea vomiting x1 Denies any type of dysphagia to either liquids or solids. Denies pyrosis, early satiety, abdominal pain, diarrhea, constipation, or changes in stool consistency or caliber. Denies coffee-ground emesis, hematemesis, hematochezia, or melanotic stools. GENITOURINARY: Denies frequency, urgency, nocturia, hematuria or incontinence (Storage/Irritative symptoms.) Low urinary stream, straining to void, urinary intermittency or hesitancy, splitting of the voiding stream, terminal dribbling. ENDOCRINOLOGIC: Denies polyuria, polydipsia, polyphagia or heat/cold intolerances. HEMATOLOGIC: Denies thrombophilia/previous clots, or coagulopathy/bleeding disorders. ONCOLOGIC: Denies personal history of malignancy. DERMATOLOGIC: Denies rashes or pruritus. PSYCHIATRIC: Denies any suicidal or homicidal ideation. Denies hallucinations. Assessment/Plan: ASSESSMENT: Chest pain rule out ACS POA Morbid obesity POA Hypertension POA Hyperlipidemia POA Active smoker POA Alcohol drinker POA History of noncompliance with BP medication POA History of esophagitis POA History of H pylori POA Discharge Instructions: ATTESTATION BY PHYSICIAN I have seen and examined the patient. I reviewed the documentation, medical decision making, and treatment plan as noted by the mid-level provider above. I agree with the findings and plan of care. MARIELLA MONTENEGRO MD Home Medications: Reported Medications Atorvastatin Calcium (LIPITOR) 10 Mg Tab, 1 TAB PO DAILY for 30 Days, #30 TAB 0 Refills 05/27/24 Captopril (Captopril) 25 Mg Tablet, 1 TAB PO BID for 30 Days, #60 TAB 0 Refills 05/27/24 Trazodone HCl (Trazodone HCl) 100 Mg Tablet, 100 MG PO BID, TAB 05/27/24 Cholecalciferol (Vitamin D3) 1,250 Mcg (54489 Unit) Cap, 56582 UNITS PO AD, CAP 05/27/24 Famotidine (Famotidine) 40 Mg Tablet, 1 TAB PO HS for 30 Days, #30 TAB 0 Refills 05/27/24 Fluoxetine HCl (Fluoxetine HCl) 40 Mg Capsule, 1 CAP PO DAILY for 30 Days, #30 CAP 0 Refills 05/27/24 Discontinued Scripts Pantoprazole Sodium (Protonix) 40 Mg Tablet., 40 MG PO DAILY for 30 Days, #30 TAB Prov:KATIA BENJAMINP 10/02/23 Loperamide HCl (Loperamide) 2 Mg Tablet, 2 MG PO DAILY for 7 Days, #30 TAB Take 2 now then 1 after every loose stool. Once you have a solid stool discontinue use. Prov:KATIA BENJAMIN 10/02/23 Pantoprazole Sodium (Protonix) 40 Mg Tablet., 40 MG PO BID for GERD for 90 Days, #180 TAB 1 Refill Prov:YONY HOSKINS Jr., MD 05/12/22 Atorvastatin Calcium (Atorvastatin Calcium) 10 Mg Tablet, 10 MG PO DAILY for 90 Days, #90 TAB Prov:YONY HOSKINS Jr., MD 05/12/22 VENKAT CHEN HIGH LIFT MULE OPERATOR May 28, 2024 10:50
[2024-05-28 10:51] VITALS: BP 115/56; PULSE 68; RESP 16; TEMP 98.7
--- NOTE | 2024-05-28 11:04 | CONS ---
CONSULT NOTE: CARDIOLOGY Reason for consult: Chest pain HPI/story at presentation: This is a pleasant 54-year-old female with past medical history as below presented with complaints of atypical chest discomfort to the emergency room, she has been having issues with acid reflux and pain is similar to her previous issues with acid reflux although, it was more intense level, she was given further evaluation and management. Troponins EKG, within normal limits. Cardiology was consulted for evaluation management Subjective: 05/28/2024 no complaints Past medical history: See below Allergies, Meds See chart Review of systems Review of Systems Constitutional: Negative for chills and fever. HENT: Negative for ear discharge and ear pain. Eyes: Negative for photophobia and discharge. Respiratory: Negative for cough, sputum production and stridor. Cardiovascular: Negative for chest pain and palpitations. Gastrointestinal: Negative for diarrhea and vomiting. Genitourinary: Negative for frequency. Musculoskeletal: Negative for myalgias. Skin: Negative for rash. Neurological: Negative for focal weakness and seizures. Endo/Heme/Allergies: Negative for polydipsia. Psychiatric/Behavioral: Negative for hallucinations. Vitals see chart PHYSICAL EXAMINATION GENERAL: The patient is alert and oriented*3 HEENT: Nonicteric sclerae, non traumatic HEART: Regular rate and rhythm with no murmurs LUNGS: Clear to auscultation bilaterally ABDOMEN: No acute issues, non tender GENITAL, RECTAL: deferred SKIN: No rash NEUROLOGIC: NFND EXTREMITIES: No edema ASSESSMENT CHEST PAIN Atypical Possible acid reflux in the differential Previously on famotidine at home History of esophagitis H. pylori Negative troponins, no ischemic changes on EKG HYPERTENSION, HYPERLIPIDEMIA, OBESITY, TOBACCO USE CORE MEASURES Not applicable MEDICAL PROBLEMS History of left knee bursitis PLAN 05/28/2024 chest pain is atypical, mL conservatively for now. Follow-up in the office and consider stress testing if symptoms are persistent. Will switch famotidine to omeprazole reasonable at discharge. ATTESTATION I was involved substantially in the care of this patient Number and complexity of problems addressed: Amount and or complexity of data Review of prior external note(s) from each unique source: 2+ Ordering of each unique test : 0 Review of the result(s) of each unique test: 2+ Assessment requiring an independent historian(s): No Independent interpretation of test performed by another MD/QHCP/appropriate source (not separately reported) : No Discussion of management or test interpretation with external MD/QHCP/appropriate source (not separately reported) : No Risk status (cardiac, billing related): KEESHA Salcedo MD May 28, 2024 11:04
--- NOTE | 2024-05-28 14:49 | HMCSR ---
APPROVED REPORT EXAM: Two-dimensional and M-mode echocardiogram with Doppler and color Doppler. Study Details: Hx: esophagitis, H pylori, hypertension, left knee bursitis, hyperlipidemia and noncom pliance with medication INDICATION ICD: Chest pain R07.9 2D Dimensions RVDd4.0 cmLVEF(%)64.9 (>50%)LVED Vol(simp.)94.0 mL IVSd0.6 (0.7-1.1cm)FS(%)35 %LVES Vol(simp.)38.0 mL LVDd4.8 (3.8-5.6cm)LA (2D)3.7 (1.6-4.0cm)LVEF(%, simp.)60 % PWd0.9 (0.7-1.1cm)Ao Root(2D)2.3 (2.0-3.7cm)LA ESV INDEX (4CH)24.70 mL/m2 IVSs1.1 cmLVOT diam1.7 (1.8-2.4cm)LA ESV INDEX (2CH)28.00 mL/m2 LVDs3.1 (2.5-4.0cm)IVC diam1.7 cmLA ESV INDEX (BP)28.80 mL/m2 PWs1.3 cm M-Mode Dimensions EPSS0.8 cm LA (MM)3.4 (1.6-4.0cm) Ao Root(MM)2.5 (2.0-3.7cm) Aortic Valve AoV VTI0.4 mAo Mean GR7.0 mmHgLVOT VTI0.30 m JEMMA (VMAX)1.8 cm2AVA (VTI) 1.8 cm2 Mitral Valve MV E Vmax91.8 cm/sDECEL Chyx645 ms MV A Vmax67.1 cm/sP 1/2 T52 ms E/A ratio1.4MVA (PHT)4.2 cm2 TDI E/E' Medial9.9E/E' Lateral7.9 Medial E' Peak V9.30 cm/sLateral E' Peak V11.60 cm/s Tricuspid Valve RAP (EST) 3 mmHgRVSP3.0 mmHg Left Ventricle The left ventricle structure and function is normal. Normal wall motion There is normal left ventricu lar wall thickness. LVEF is 60-65%. The left ventricular diastolic function is normal. Right Ventricle The right ventricle is normal size. The right ventricular systolic function is normal. Atria The left atrium size is normal. The right atrium size is normal. Aortic Valve Aortic valve is trileaflet and opens well. Mild thickening of the leaflets No aortic regurgitation is present. There is no aortic valvular stenosis. Mitral Valve The mitral valve is thickened. Anterior mitral valve leaflets appears prolapsed. There is no mitral v alve regurgitation noted. There is no mitral valve stenosis. Tricuspid Valve The tricuspid valve is normal in structure and function. There is no tricuspid valve regurgitation no ginny. Pulmonic Valve Pulmonic valve is not well visualized. There is no pulmonic valvular regurgitation. Great Vessels The aortic root is normal in size. The IVC is normal in size and collapses >50% with inspiration. Pericardium No pericardial effusion. Other Information Quality : Fair Conclusion LVEF is 60-65%. The left ventricular diastolic function is normal. There is normal left ventricular wall thickness. The left ventricle structure and function is normal. Normal wall motion Aortic valve is trileaflet and opens well. Mild thickening of the leaflets No effusion Normal pulmonary pressures Study quality was adequate
[2024-05-28] MEDS ORDERED: atorVAStatin 40 MG TABLET PO SCH (21:00)
== END 2024-05-28 10:10 | disposition home or self-care (01) ==
LOC: EDH 19:01 → EDHIP 21:57 → INTOOBSV 21:57 → EDHIP 05-28 10:10 → UNDODEPER 05-28 22:29
PROVIDERS: ADMIT Internal Medicine; ATTEND Internal Medicine
DX: R07.2 Precordial pain (principal); E66.01 Morbid (severe) obesity due to excess calories; I10 Essential (primary) hypertension; E78.00 Pure hypercholesterolemia, unspecified; F17.210 Nicotine dependence, cigarettes, uncomplicated; F10.10 Alcohol abuse, uncomplicated; K57.30 Diverticulosis of large intestine without perforation or abscess without bleeding; R11.2 Nausea with vomiting, unspecified; I24.9 Acute ischemic heart disease, unspecified; K20.90 Esophagitis, unspecified without bleeding; M70.52 Other bursitis of knee, left knee; Z86.19 Personal history of other infectious and parasitic diseases; Z68.34 Body mass index [BMI] 34.0-34.9, adult; Z90.710 Acquired absence of both cervix and uterus; Z91.148 Patient's other noncompliance with medication regimen for other reason; Z86.2 Personal history of diseases of the blood and blood-forming organs and certain disorders involving the immune mechanism
CPT/HCPCS: 99285; 82550; 80076; 84484 ×4; 80048; 83880; 85025 ×2; 81001; 36415 ×2; 71045; 96374; 96375 ×2; 93005; 96372; 83036; 84443; 83735; 80061; 80053; 85651; 82948; 93306; G0378 ×11; J2270; J2405; J2470 ×2; J1650

== ENCOUNTER 2024-06-01 20:34 | Emergency (ER) | payer BC ==
[~2024-06-01] VITALS: Ht 157.5 cm; Wt 86.6 kg
[~2024-06-01 20:34] MED LIST changes: +AEC81 PO; +ATOR10 PO; -ATOR10TA69 PO; +CAPT25TA3 PO; +FLUO40CA49 PO; -LOPE2TAB26 PO; +OMEP20CA12 PO; -PANT40TA PO; +TRAZ-187 PO; +VITAD50000 PO
[2024-06-01 21:16] LABS: BASOPHILS # (AUTO) 0.03 K/uL (0.00-0.20); BASOPHILS % (AUTO) 0.4 % (0.0-5.0); EOSINOPHILS # (AUTO) 0.13 K/uL (0.00-0.70); EOSINOPHILS % (AUTO) 1.9 % (0.0-8.0); HEMATOCRIT 37.6 % (36-48); IMMATURE GRANULOCYTE ABSOLUTE 0.03 K/uL (0-1); LYMPHOCYTES % (AUTO) 28.7 % (21.0-51.0); MEAN CORPUSCULAR HGB CONC 31.6 g/dL (32.0-36.0); MEAN CORPUSCULAR VOLUME 91.5 fL (79-99); MONOCYTES # (AUTO) 0.6 K/uL (0.1-1.0); MONOCYTES % (AUTO) 8.2 % (3.0-13.0); NEUTROPHILS # (AUTO) 4.2 K/uL (1.8-7.7); NEUTROPHILS % (AUTO) 60.4 % (40.0-77.0); PLATELET COUNT (AUTO) 283 K/uL (130-400); RED BLOOD CELL COUNT(AUTO) 4.11 MIL/uL (4.00-5.50); RED CELL DISTRIBUTION WIDTH 12.8 % (11.0-15.5); WHITE BLOOD COUNT (AUTO) 6.9 K/uL (4.8-10.8)
[2024-06-01 21:25] LABS: CREATININE 0.9 mg/dL (0.5-1.0); POTASSIUM 3.8 mmol/L (3.5-5.1)
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
[2024-06-01 21:37] LABS: B-TYPE NATRIURETIC PEPTIDE 21 pg/mL (0-100)
[2024-06-01 21:40] LABS: ADD UA MICROSCOPIC YES; APPEARANCE,URINE CLOUDY (CLEAR); BILIRUBIN,URINE NEGATIVE (NEGATIVE); COLOR,URINE LIGHT-YELLOW (YELLOW); GLUCOSE, URINE (UA) NEGATIVE (NEGATIVE); KETONES,URINE NEGATIVE (NEGATIVE); LEUKOCYTE ESTERASE ,URINE 500 Leu/uL (NEGATIVE); NITRATE,URINE NEGATIVE (NEGATIVE); OCCULT BLOOD,URINE NEGATIVE (NEGATIVE); PROTEIN,URINE NEGATIVE (NEGATIVE); UROBILINOGEN,URINE 0.2 mg/dL (0.2-1.0)
[2024-06-01 21:44] LABS: BACTERIA,URINE RARE /HPF (None Seen); MUCUS,URINE RARE LPF (None Seen); SQUAMOUS EPITHELIAL CELL,UR MANY /HPF (0-2)
--- NOTE | 2024-06-01 22:22 | HMCIMG ---
CHEST 1VW HISTORY: Chest pain COMPARISON: 05/27/2024 FINDINGS: A frontal projection of the chest was obtained. No acute pulmonary infiltrates is seen. The heart is normal in size. Prominent interstitial markings are seen. No evidence of aortic calcification is seen. IMPRESSION: 1. No acute pulmonary infiltrate is seen.
[2024-06-02] MEDS: ondanSETRON ODT 4MG TAB SL ONE (00:17)
[2024-06-02 00:30] VITALS: BP 164/84; PULSE 67; RESP 18; TEMP 98.3; O2SAT 96
--- NOTE | 2024-06-02 07:48 | EKG ---
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
== END 2024-06-02 00:35 | disposition home or self-care (01) ==
LOC: EDH 20:34
DX: K20.90 Esophagitis, unspecified without bleeding (principal); R07.89 Other chest pain; K44.9 Diaphragmatic hernia without obstruction or gangrene; B96.81 Helicobacter pylori [H. pylori] as the cause of diseases classified elsewhere; E78.00 Pure hypercholesterolemia, unspecified; F32.A Depression, unspecified; F41.9 Anxiety disorder, unspecified; I10 Essential (primary) hypertension; F17.200 Nicotine dependence, unspecified, uncomplicated; Z79.82 Long term (current) use of aspirin; Z79.899 Other long term (current) drug therapy
CPT/HCPCS: 36415; 71045; 80048; 81001; 82550; 83880; 84484; 85025; 87086; 93005; 99284

== ENCOUNTER → 2024-06-17 | Outpatient (CLI) | payer OTHER ==
--- NOTE | 2024-06-17 11:48 | HMCIMG ---
CT HEART SAVER PROMOTIONAL HISTORY: Calcium scoring COMPARISON: None TECHNIQUE: Computed tomography of the heart was performed with ECG gating and suspended respiration. Postprocessing was performed on a computer workstation to obtain diastolic phase images, determine calcium score and provide a quantitative assessment of extent of disease. This CT included only the heart. HeartSaver score is 0.0. Please see cardiac calcium score report. The available CT chest images show no acute finding. CT was performed with one or more following dose reduction techniques: automated exposure control, adjustment of the mA and kv according to patient's size, or use of a iterative reconstruction technique.
== END | disposition home or self-care (01) ==
LOC: RAH 09:52
PROVIDERS: ATTEND Internal Medicine Cardiovascular Disease
DX: Z13.6 Encounter for screening for cardiovascular disorders (principal)
CPT/HCPCS: 75571

== ENCOUNTER 2024-09-01 10:01 | Emergency (ER) | payer BC, OTHER ==
[~2024-09-01] VITALS: Ht 157.5 cm; Wt 85.3 kg
--- NOTE | 2024-09-01 10:39 | EKG ---
[facility] Test Date: 2024-09-01 Test Time: 10:35:20 Pat Name: GLO LYNNE Department: ED Room: Gender: F Ultrasound Technologist: [id number] : 1970 Requested By: SAMUEL MULLINS Order Number: [id number] Reading MD: Hilario Lara Measurements Intervals [place] Rate: 75 P: 44 TX: 142 QRS: 35 QRSD: 95 T: 72 QT: 389 QTc: 436 Interpretive Statements Sinus rhythm Compared to ECG 06/01/2024 20:37:27 T-wave abnormality no longer present Electronically Signed On 09-02-2024 11:52:32 PROFESSIONAL BENEFITS SALES CONSULTANT by Hilario Lara Please click the below link to view image of tracing.
[2024-09-01 10:56] LABS: BASOPHILS # (AUTO) 0.03 K/uL (0.00-0.20); BASOPHILS % (AUTO) 0.3 % (0.0-5.0); EOSINOPHILS # (AUTO) 0.01 K/uL (0.00-0.70); EOSINOPHILS % (AUTO) 0.1 % (0.0-8.0); HEMATOCRIT 41.3 % (36-48); IMMATURE GRANULOCYTE ABSOLUTE 0.03 K/uL (0-1); LYMPHOCYTES # (AUTO) 0.9 K/uL (1.0-4.8); LYMPHOCYTES % (AUTO) 9.5 % (21.0-51.0); MEAN CORPUSCULAR HEMOGLOBIN 29.1 pg (27.0-33.0); MEAN CORPUSCULAR HGB CONC 32.4 g/dL (32.0-36.0); MEAN CORPUSCULAR VOLUME 89.8 fL (79-99); MONOCYTES # (AUTO) 0.5 K/uL (0.1-1.0); MONOCYTES % (AUTO) 5.3 % (3.0-13.0); NEUTROPHILS # (AUTO) 8.3 K/uL (1.8-7.7); NEUTROPHILS % (AUTO) 84.5 % (40.0-77.0); PLATELET COUNT (AUTO) 357 K/uL (130-400); RED CELL DISTRIBUTION WIDTH 12.9 % (11.0-15.5); WHITE BLOOD COUNT (AUTO) 9.8 K/uL (4.8-10.8)
[2024-09-01 11:02] LABS: CREATININE 0.7 mg/dL (0.5-1.0); POTASSIUM 3.8 mmol/L (3.5-5.1)
[2024-09-01 11:05] LABS: INR 1.01 (0.85-1.15); PROTHROMBIN TIME 11.3 SEC (9.6-11.6)
[2024-09-01 11:07] LABS: PARTIAL THROMBOPLASTIN TIME 27.4 SEC (26.3-35.5)
[2024-09-01 11:19] LABS: RAPID GROUP A STREP negative (NEGATIVE)
[2024-09-01 11:29] LABS: INFLUENZA TYPE A Negative For Type A (NEGATIVE); INFLUENZA TYPE B Negative For Type B (NEGATIVE)
[2024-09-01 11:32] LABS: COVID19 (SARS ANTIGEN RAPID) PRESUMPTIVE NEGATIVE (NEGATIVE)
[2024-09-01] MEDS: acetaMINOPHEN 500 MG TABLET PO ONE (11:48)
--- NOTE | 2024-09-01 11:52 | HMCIMG ---
CHEST 1VW REASON: Chest pain COMPARISON: 06/01/2024 FINDINGS: Single view of the chest was obtained. Lungs are clear. Heart size is normal. There is no pulmonary vascular congestion. Mediastinum and bony thorax appear unremarkable. IMPRESSION: 1. Normal single view chest x-ray.
[2024-09-01] MEDS: ondanSETRON ODT 4MG TAB SL ONE (12:17)
[2024-09-01 12:22] VITALS: TEMP 98.9
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
[2024-09-01 13:03] VITALS: BP 142/92; PULSE 70; RESP 16; TEMP 98.1; O2SAT 98
== END 2024-09-01 13:10 | disposition home or self-care (01) ==
LOC: EDH 10:01
DX: R07.89 Other chest pain (principal); J02.9 Acute pharyngitis, unspecified; F41.9 Anxiety disorder, unspecified; F32.A Depression, unspecified; F17.200 Nicotine dependence, unspecified, uncomplicated; E78.00 Pure hypercholesterolemia, unspecified; I10 Essential (primary) hypertension; K21.9 Gastro-esophageal reflux disease without esophagitis; Z79.82 Long term (current) use of aspirin; Z79.899 Other long term (current) drug therapy; Z20.822 Contact with and (suspected) exposure to COVID-19
CPT/HCPCS: 36415; 71045; 80048; 84484; 85025; 85610; 85730; 87426; 87804; 87880; 93005; 99284